=== PATIENT | female | born 1965 | race Caucasian/White ===

== ENCOUNTER → 2016-09-23 | Outpatient (CLI) | payer OTHER ==
--- NOTE | 2016-09-23 10:10 | US ---
Ultrasound Thyroid History: E04.2, thyroid nodule. Previous biopsies. Comparison: Ultrasound July 2015. Technique: Longitudinal and transverse ultrasound imaging of the thyroid gland. Findings: Right lobe of the thyroid measures 4.3 x 2.3 x 1.4 cm. Left lobe of the thyroid measures 3. 9 x 1.9 x 1.5 cm. Isthmus thickness is 0.5 cm. In the left lobe upper pole there is a 1 x 0.7 x 0.7 cm heterogenous hypoechoic nodule previously jessie suring 1 x 0.8 x 0.8 cm, stable. In the upper pole right lobe there is a 1.4 x 1.1 x 0.7 cm heterogenous nodule which previously measu red 1.4 x 1.4 x 0.6 cm, stable. In the lower pole right lobe there is a 1 x 0.9 x 0.9 cm nodule which previously measured 1 x 1 x 1 c m, also stable. Both lobes of the thyroid are diffusely heterogenous. Impression: 1. Diffusely heterogenous multinodular goiter. 2. The three previously identified nodules are stable since July 2015.
--- NOTE | 2016-09-23 11:24 | MA ---
Screening Digital Mammogram Clinical Indications: Routine screening. Technique: Standard cephalocaudal and mediolateral oblique projections are obtained. This examinati on is processed by the [id number] computer aided detection system. Comparison: May 2015 and March 2013 Breast density: B; There are scattered fibroglandular densities. Findings: CAD was reviewed. No suspicious findings are identified. Impression: Negative mammogram. . BI-RADS 1. Recommendation: Routine screening is recommended in one year. [facility] will send a result letter to the patient. Negative mammography should not preclude additional workup of a clinically suspicious finding. The patient's information is entered into a reminder system with a target due date for her next mammo gram.
== END ==
LOC: BMCIMAGING 08:39
PROVIDERS: ATTEND Internal Medicine Endocrinology, Diabetes & Metabolism
DX: Z12.31 Encounter for screening mammogram for malignant neoplasm of breast (principal); E04.2 Nontoxic multinodular goiter
CPT/HCPCS: 76536-PO; G0202